=== PATIENT | female | born 1990 | race Caucasian/White ===

== ENCOUNTER 2021-12-23 22:04 | Emergency (ER) | payer MEDICAID ==
[2021-12-23 22:04] VITALS: BP 132/78
== END 2021-12-24 01:44 | disposition left against medical advice (07) ==
LOC: ER 22:04
DX: R10.2 Pelvic and perineal pain (principal); R14.0 Abdominal distension (gaseous); Z53.21 Procedure and treatment not carried out due to patient leaving prior to being seen by health care provider